=== PATIENT | male | born 1960 | race Caucasian/White ===

== ENCOUNTER 2019-02-15 09:44 | Day surgery (SDC) | payer OTHER ==
[2019-02-10 14:46] VITALS: BMI 34.0
[~2019-02-15 09:44] MED LIST: LACTATED RINGERS 1,000 ML IV SCH; LIDOCAINE 1% 20 ML VIAL (10MG/ML) FOR IV START INTRADERMA PRN; MOXIFLOXACIN HCL 0.5% DROPS 3 ML BTL OP ONE; TETRACAINE 0.5% OPHTH (PF) DROPS 4 ML BTL OP ONE; TIMOLOL 0.5% OPHTH DROPS 5 ML BTL OP ONE
[2019-02-15] MEDS: CYCLOPENTOLATE 1% OPHTH SOLN 2 ML BTL OP ONE ×3 (11:19→11:35)
[2019-02-15 11:21] VITALS: TEMP 97.9
[2019-02-15] MEDS: PHENYLEPHRINE 2.5% OPHTH DRP 2ML OP NR ×3 (11:22→11:40)
[2019-02-15] MEDS ORDERED: fentaNYL (PF) 50 MCG/ML 2 ML AMP ONE (12:14)
[2019-02-15] MEDS ORDERED: MIDAZOLAM 2 MG/2 ML VIAL ONE (12:14)
[2019-02-15] MEDS ORDERED: HYALURONATE SODIUM INTRAOCULAR 1 EACH SYRINGE (12MG/ML) INTRAOCULA ONE ×2 (12:31)
[2019-02-15] MEDS ORDERED: BALANCED SALT IRRIG SOLN COMB2 15 ML IRRIG.SOLN IRRIGATION ONE (12:31)
[2019-02-15] MEDS ORDERED: ACETYLCHOLINE CHLORIDE 10 MG/ML 2 ML KIT INTRAOCULA ONE (12:33)
[2019-02-15] MEDS ORDERED: LIDOCAINE 1% (PF) 10MG/ML VIAL SQ ONE (12:33)
[2019-02-15] MEDS ORDERED: EPINEPHrine (PF) 0.3 ML in BALANCED SALT IRRIG SOLN COMB2 500 ML IRRIGATION ONE (12:35)
[2019-02-15] MEDS ORDERED: TRYPAN BLUE 0.06% SYRINGE 0.5 ML SYRINGE INTRAOCULA ONE (12:58)
[2019-02-15] MEDS ORDERED: ATROPINE OPHTH SOLN 1% 2 ML BTL RIGHT EYE ONE (14:06)
--- NOTE | 2019-02-15 14:10 | P.OP ---
Date of Procedure: 02/15/19 Preoperative Diagnosis: NS & CS & endothelial failure Postoperative Diagnosis: same Procedure(s) Performed: TRIPLE PROCEDURE: PIOL & DMEK, OD Implants: [id number] 17.0 Anesthesia: MAC Surgeon: Duc Smith Estimated Blood Loss (ml): 0 Pathology: none sent Condition: stable Disposition: same day Indications for Procedure: blurry vision and endothelial failure Operative Findings: No complications
[2019-02-15 14:16] VITALS: RESP 16
[2019-02-15 15:16] VITALS: BP 136/97; PULSE 93
--- NOTE | 2019-02-15 17:43 | OP ---
OPERATIVE REPORT DATE OF SURGERY: 02/15/2019. PROCEDURE: This is a triple procedure. This includes phacoemulsification of cataract with intraocular lens implant as well as Descemet's membrane and endothelial keratoplasty of the right eye. 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 SURGEON: Dr. Duc Smith. ANESTHESIA: Topical. ESTIMATED BLOOD LOSS: None. SPECIMEN TAKEN: None. NARRATIVE: This patient has had a long-standing history of keratoconus of both eyes, the right one which required corneal transplantation in 2001. Subsequent to that transplant he did suffer a brief episode with endothelial rejection, which largely recovered. Now approximately 18 years later the cornea has begun to demonstrate serious decompensation due to the lack of viable endothelial cells. Today's surgery was intended to resolve problems of the developing cataract as well as stabilize the cornea without having to proceed with a full replacement corneal transplant by doing a Descemet's membrane and endothelial keratoplasty. After obtaining the appropriate consent, the patient was brought to the operating room. There he was placed on cardiac monitoring and prepped and draped in the usual sterile manner. He was approached from his right temporal side, and at the 11 o'clock position an MVR blade was used to create a paracentesis port. Through this opening 1% xylocaine MPF 50:50 mix with balanced salt solution was injected into the anterior chamber. This was followed by stabilization of the anterior chamber with Amvisc. At the 9 o'clock position a 2.5 mm keratome followed by a 2.8 mm keratome was used to create a self- sealing corneal flap incision. Through this opening a cystotome was used to begin a continuous tear capsulorrhexis, which was completed using the Utrata forceps. Hydrodissection and hydrodelineation of the lens was accomplished with balanced salt solution. Phacoemulsification of the lens utilizing phaco chop was accomplished in 0:00.95 seconds at 10% power. Additional xylocaine MPF was instilled into the anterior chamber. This was followed by removal of the remaining cortex under irrigation and aspiration along with careful polishing of the posterior capsule in the capsule vacuum mode. Additional Amvisc was then used to stabilize the capsular bag and an DEANDRE PCP 00 17.0 diopter posterior chamber intraocular lens was then inserted into the capsular bag without difficulty. The remaining viscoelastic was removed from in and around the intraocular lens. At this stage Miochol was instilled into the patient's eye to bring about pupillary miosis. His eye was temporarily covered with a small piece of Wechsel sponge and attention was then directed to the donor tissue. This tissue from [facility] was identified as [id number] and was transported as prestripped Descemet's tissue ready for implantation. The solution of transport was sent for bacterial study and the prestripped Descemet's tissue in a Briggs tube was placed on the end of a 3 mL syringe. In addition, while prepping the corneal tissue, SF6 was diluted to a 20% concentration with air and set aside for use later in the case. Attention was then turned back to the patient after sufficient time for miosis to occur, and trypan blue was instilled into the anterior chamber and left in place for approximately 3 minutes. The previous corneal transplant was confirmed with an 8 mm Yanira trephine. Using a Armando-Audi Hook, the endothelium just inside the corneal transplant was incised and was removed with the Descemet's membrane stripping tool. Once this was accomplished, all remaining viscoelastic was removed from the anterior chamber with strong flow. The anterior chamber was partially deflated so as to accept the donor tissue, which was brought to the field. The end of the Briggs tube was inserted into the temporal incision and the donor tissue was injected without difficulty. The temporal wound was tamponaded with 0.12 forceps while 10-0 nylon suture was used to close the temporal wound in an X fashion. Attention was then directed specifically at the donor tissue in the front chamber which appeared to be moderately tightly scrolled. Further deflation of the anterior chamber was required in order to be able to manipulate the tissue into the proper position. Once the tissue was properly centered and the identifying stromal matias was readily seen, a small amount of air was placed beneath the Descemet's tissue and buoyed the donor tissue against the host cornea. Once it appeared that the tissue truly was in good position and no edges were rolled, a small amount of SF6 was injected into the anterior chamber to bring the intraocular pressure to approximately 50 mmHg. This was left in the patient's eye for approximately 15 minutes while confirming with the patient that he continued to maintain some sort of vision from the eye. Near the end of the 15-minute time period, small amounts of balanced salt solution were injected into one of the 4 previously placed paracentesis sites on the eye. Confirmation of slightly higher than normal intraocular pressure was confirmed by palpation of the globe, and the amount of gas/air in the anterior chamber of the eye was approximately 50% of the volume of the anterior chamber. At this stage he received 2 drops of moxifloxacin as well as 2 drops of 1% atropine and 2 drops of 0.5% timolol. His eye was shielded and he was returned to Recovery, where he remained for an additional 45 minutes. At the end of that period of time his eye was examined under a slit lamp, which confirmed placement, appropriate amount of air in the anterior chamber, and no significant discomfort from the patient's eye. At this point the eye was re-shielded, instructions were given, and the patient was released to return home, spending two-thirds of his waking hours supine to allow the air bubble to perform its duty. There were no complications from this procedure. He tolerated the procedure well. MMODL / IJN: [id number] /
== END 2019-02-15 15:25 | disposition home or self-care (01) ==
LOC: OR 09:44
PROVIDERS: ATTEND Ophthalmology
DX: H25.13 Age-related nuclear cataract, bilateral (principal); H25.013 Cortical age-related cataract, bilateral; T86.841 Corneal transplant failure; H18.51 Endothelial corneal dystrophy; H18.603 Keratoconus, unspecified, bilateral; H52.13 Myopia, bilateral; H52.223 Regular astigmatism, bilateral; H52.4 Presbyopia; I10 Essential (primary) hypertension; E78.5 Hyperlipidemia, unspecified; K21.9 Gastro-esophageal reflux disease without esophagitis; F32.9 Major depressive disorder, single episode, unspecified; C76.51 Malignant neoplasm of right lower limb; Z79.899 Other long term (current) drug therapy; Z83.518 Family history of other specified eye disorder; Z83.3 Family history of diabetes mellitus; Z82.49 Family history of ischemic heart disease and other diseases of the circulatory system; Z97.3 Presence of spectacles and contact lenses
CPT/HCPCS: 87070; 87205; 87075; 66984; 65756; V2785; C1780; J2250; J0171; J3010; J2001

== ENCOUNTER 2019-05-17 08:24 | Day surgery (SDC) | payer OTHER ==
[2019-05-15 11:26] VITALS: BMI 34.7
[~2019-05-17 08:24] MED LIST changes: -LACTATED RINGERS 1,000 ML IV SCH; +MOXIFLOXACIN HCL 0.5% DROPS 3 ML BTL OP NR; -MOXIFLOXACIN HCL 0.5% DROPS 3 ML BTL OP ONE; +TETRACAINE 0.5% OPHTH (PF) DROPS 4 ML BTL OP NR; -TETRACAINE 0.5% OPHTH (PF) DROPS 4 ML BTL OP ONE; -TIMOLOL 0.5% OPHTH DROPS 5 ML BTL OP ONE
[2019-05-17] MEDS: PILOCARPINE 2% OPHTH DROPS 15 ML BTL OP NR ×4 (09:31→10:42)
[2019-05-17] MEDS: SODIUM CHLORIDE 5% OPHTH DROPS 15 ML BTL RIGHT EYE PRN ×6 (09:35→10:10)
[2019-05-17] MEDS: LACTATED RINGERS 1,000 ML IV SCH ×2 (09:57→10:12)
[2019-05-17 10:03] VITALS: RESP 18; TEMP 97.6
[2019-05-17] MEDS ORDERED: fentaNYL (PF) 50 MCG/ML 2 ML AMP ONE (10:17)
[2019-05-17] MEDS ORDERED: MIDAZOLAM 2 MG/2 ML VIAL ONE (10:17)
[2019-05-17] MEDS ORDERED: EPINEPHrine (PF) 0.3 ML in BALANCED SALT IRRIG SOLN COMB2 500 ML IRRIGATION ONE (10:38)
[2019-05-17] MEDS ORDERED: BALANCED SALT IRRIG SOLN COMB2 15 ML IRRIG.SOLN IRRIGATION ONE (10:39)
[2019-05-17] MEDS ORDERED: HYALURONATE SODIUM INTRAOCULAR 1 EACH SYRINGE (12MG/ML) INTRAOCULA ONE (10:40)
[2019-05-17] MEDS ORDERED: LIDOCAINE (PF) 10 MG/ML 5ML AMP MISCELLANE ONE (10:40)
--- NOTE | 2019-05-17 11:31 | P.OP ---
Date of Procedure: 05/17/19 Preoperative Diagnosis: endothelial failure Postoperative Diagnosis: same Procedure(s) Performed: DMEK Implants: none Anesthesia: MAC Pathology: none sent Condition: stable Disposition: same day Indications for Procedure: failed endothelium. Operative Findings: no complications
[2019-05-17 12:27] VITALS: BP 127/91; PULSE 90
[2019-05-17] MEDS ORDERED: ACETAMINOPHEN TAB 325 MG TAB PO ONE (12:42)
--- NOTE | 2019-05-17 21:04 | OP ---
OPERATIVE REPORT DATE OF SURGERY: May 17, 2019. PROCEDURE PERFORMED: Descemet's membrane and endothelial keratoplasty of the right eye. PREOPERATIVE DIAGNOSIS: Primary graft failure of the right eye. POSTOPERATIVE DIAGNOSIS: Primary graft failure of the right eye. SURGEONS: Dr. Duc Smith. ANESTHESIA: Topical. ESTIMATED BLOOD LOSS: None. SPECIMEN: Taken none. NARRATIVE: Previous history: This is a gentleman with keratoconus, who underwent penetrating keratoplasty of the right eye in 2000. Subsequent to that, he ended up with some rejection of the cornea late [id number] with apparently eventual failure by the time he presented to me approximately 17 years later in 2019. He underwent a cataract removal, lens implant with a Descemet's membrane endothelial keratoplasty of the right eye at that time, and the graft did not take to the eye after the implantation. Therefore, this was a primary graft failure as it happened within the 1st couple of weeks. Regardless, he now presents for repair for replacement of the failed Descemet's membrane graft which is the procedure for which he is here today. After obtaining the appropriate consent, the patient was brought to the operating room. There, he was placed on cardiac monitoring prepped and draped in the usual sterile manner. He was approached from his right temporal side. Four paracenteses were performed in the diagonal quadrants using an MVR blade as well as a 2.8 mm temporal incision with a keratome. Lidocaine MPF 50/50 mix with balanced salt solution was injected into the anterior chamber. This was followed by removal of the failed Descemet's membrane using both Roberts Sinskey hook as well as a membrane stripper. Attention was then directed to the new donor tissue, which was identified as [id number]. This was brought to the field. Cultures were taken of the transport solution and sent to the laboratory for identification of any potential pathogens. If the tissue was then brought to the patient's eye, and after removing at least 50% of the aqueous from the anterior chamber, the Briggs tube was inserted into the temporal incision and the tissue was delivered into the anterior chamber of the eye without difficulty. The temporal incision was tamponade as the Briggs tube was removed and a single 10-0 nylon suture was used to close the temporal incision in an X fashion. Various manipulation techniques were used to lay the new donor tissue flat with the correct orientation. Once the tissue was in good position, a small air bubble was placed underneath the donor to lightly tamponade it to the patient's cornea. Once the cornea, as the cornea remained in satisfactory position, a 20% solution of sulfur Hexafluoride SF6 was injected into the patient's eye to tamponade the entire tissue against the patient's cornea. Approximately 20 minutes had passed prior to removing some of the SF6 gas and leaving the eye approximately 50% full of gas at the end of this portion of the case. Two drops of timolol as well as 2 drops of moxifloxacin were placed on the patient's eye and he was returned to the recovery area where he was allowed to remain flat and looking at the ceiling for an additional hour. An examination of the slit-lamp in the recovery area identified the anterior chamber as being 90% full of gas and moderate discomfort as reported by the patient. A drop of tetracaine was placed on the patient's eye and while the patient looked downward a Bechert lens manipulating instrument was used to partially open the superior nasal paracentesis. A small amount of gas was released with relief in the patient from the deep-seated discomfort within the eye from the increased eye pressure. Re-examination of the slit-lamp following the procedure, noted that the gas was approximately 50% of the volume of the anterior chamber. At this point, it was deemed permissible to allow the patient to return home and he was discharged from the postop recovery area in good condition. MMRUBI / ANDREW: [id number] /
== END 2019-05-17 13:09 | disposition home or self-care (01) ==
LOC: OR 08:24
PROVIDERS: ATTEND Ophthalmology
DX: T86.841 Corneal transplant failure (principal); H18.51 Endothelial corneal dystrophy; H18.11 Bullous keratopathy, right eye; H18.603 Keratoconus, unspecified, bilateral; H25.12 Age-related nuclear cataract, left eye; H25.012 Cortical age-related cataract, left eye; Z94.7 Corneal transplant status; I10 Essential (primary) hypertension; E78.5 Hyperlipidemia, unspecified; K21.9 Gastro-esophageal reflux disease without esophagitis; C76.51 Malignant neoplasm of right lower limb; F32.9 Major depressive disorder, single episode, unspecified; E78.00 Pure hypercholesterolemia, unspecified; M19.90 Unspecified osteoarthritis, unspecified site; Z87.891 Personal history of nicotine dependence; Z79.899 Other long term (current) drug therapy; Z83.518 Family history of other specified eye disorder; Z83.3 Family history of diabetes mellitus; Z82.49 Family history of ischemic heart disease and other diseases of the circulatory system; Z80.9 Family history of malignant neoplasm, unspecified; Z87.11 Personal history of peptic ulcer disease
CPT/HCPCS: 87070; 87205; 87075; 65756; V2785; J2250; J0171; J2001; J3010

== ENCOUNTER 2019-10-12 09:31 | Day surgery (SDC) | payer OTHER ==
[2019-10-11 10:30] VITALS: BMI 34.7
[~2019-10-12 09:31] MED LIST changes: +LACTATED RINGERS 1,000 ML IV SCH; +LIDOCAINE 1% (10MG/ML) FOR IV START INTRADERMA PRN; -LIDOCAINE 1% 20 ML VIAL (10MG/ML) FOR IV START INTRADERMA PRN; -MOXIFLOXACIN HCL 0.5% DROPS 3 ML BTL OP NR; -TETRACAINE 0.5% OPHTH (PF) DROPS 4 ML BTL OP NR
[2019-10-12 09:46] VITALS: TEMP 97.8
[2019-10-12] MEDS ORDERED: PROPOFOL 10 MG/ML 20 ML VIAL IV ONE (10:00)
--- NOTE | 2019-10-12 10:28 | P.PCN ---
Date of Procedure: 10/12/19 Description of Procedure: BRIEF HISTORY: Patient is a 59-year-old male presenting for outpatient colonoscopy for screening for malignant neoplasm of the colon. He does report prior colonoscopy approximately 12 years ago with polyps removed at that time. Denies any change in bowel habits, blood per rectum or abdominal pain. No family history of colon cancer. PROCEDURE PERFORMED: Colonoscopy with polypectomy. PREOPERATIVE DIAGNOSIS: Screening for malignant neoplasm in the colon, last colonoscopy 12 years ago. ESTIMATED BLOOD LOSS: Minimal. IV sedation per Anesthesia. PROCEDURE: After informed consent was obtained, the patient, was brought into the endoscopy unit. IV sedation was administered by Anesthesia under continuous monitoring. Digital rectal examination was normal. Initially the Olympus CF-190 flexible video colonoscope was then inserted in the rectum, gradually advanced into the cecum without any difficulty. Careful examination was performed as the scope was gradually being withdrawn. Ileocecal valve and the appendiceal orifice were visualized and appeared normal. Prep was excellent. Mucosa of the cecum, ascending colon, transverse colon, descending colon, sigmoid colon, and rectum appeared normal. 2 diminutive 1 mm polyps removed with cold forcep polypectomy from the cecum and the ascending colon. One 2 mm descending colon polyp removed with cold forcep polypectomy. Retroflexion was performed in the rectum and no lesions were seen, Low-grade internal hemorrhoids. The patient tolerated the procedure well. IMPRESSION: 3 diminutive colon polyps removed from the cecum, ascending colon and descending colon with cold forcep polypectomy. Otherwise normal-appearing colon from rectum to cecum. Low-grade internal hemorrhoids. RECOMMENDATIONS: Findings of this examination were discussed with the patient. Okay to resume diet. Okay to resume medications. Await pathology from polypectomy. Would recommend repeat colonoscopy in 5 years pending pathology from polypectomies.
[2019-10-12 10:51] VITALS: BP 110/73; PULSE 78; RESP 18
== END 2019-10-12 11:09 | disposition home or self-care (01) ==
LOC: ORWHC2ENDO 09:31
PROVIDERS: ATTEND Internal Medicine
DX: Z12.11 Encounter for screening for malignant neoplasm of colon (principal); D12.2 Benign neoplasm of ascending colon; D12.0 Benign neoplasm of cecum; K63.5 Polyp of colon; K64.8 Other hemorrhoids; I10 Essential (primary) hypertension; E78.5 Hyperlipidemia, unspecified; K21.9 Gastro-esophageal reflux disease without esophagitis; Z86.010 Personal history of colon polyps; Z87.891 Personal history of nicotine dependence; Z79.1 Long term (current) use of non-steroidal anti-inflammatories (NSAID); Z79.899 Other long term (current) drug therapy; Z94.7 Corneal transplant status; Z91.89 Other specified personal risk factors, not elsewhere classified; Z98.890 Other specified postprocedural states
CPT/HCPCS: 88305; 45380; J2704

== ENCOUNTER 2020-02-16 10:10 | Emergency (ER) | payer OTHER ==
[2020-02-16 10:15] VITALS: TEMP 98.6
--- NOTE | 2020-02-16 10:30 | ED ---
General Adult HPI - General Chief complaint: Syncope Stated complaint: Syncope Time Seen by Provider: 02/16/20 10:10 Source: patient, RN notes reviewed, old records reviewed Mode of arrival: ambulatory Limitations: no limitations - History of Present Illness Initial comments: This a 60-year-old male who presents to the emergency department complaining of having a syncopal episode. Patient states she's had multiple of these over the last 10 years. Patient states she's not sure why they occur. Patient states he was at home had not eaten yet today and he was walking around when all of a sudden he felt lightheaded and he sat down and then he passed out. According to EMS when they got there is systolic blood pressure was in the 80s and they gave him a liter and half of fluid and his blood pressures come up. Currently patient has no symptoms. Patient states earlier all he felt was lightheaded he denied having headache he denied any numbness or focal weakness. Patient denies any chest pain difficulty breathing or shortness of breath. Patient denied any recent abdominal pain nausea vomiting or diarrhea. Patient denies any recent fever chills. Patient has absolutely no complaints at this time. - Related Data Home Medications Medication Instructions Recorded Confirmed Ibuprofen 800 mg PO BID 02/10/19 10/12/19 Omeprazole 20 mg PO DAILY 02/10/19 10/12/19 Pravastatin Sodium [Pravachol] 80 mg PO HS 02/10/19 10/12/19 amLODIPine [Norvasc] 2.5 mg PO DAILY 02/10/19 10/12/19 lisinopriL 40 mg PO DAILY 02/10/19 10/12/19 Allergies Allergy/AdvReac Type Severity Reaction Status Date / Time No Known Allergies Allergy Verified 02/16/20 10:15 Review of Systems ROS Statement: Those systems with pertinent positive or pertinent negative responses have been documented in the HPI. ROS Other: All systems not noted in ROS Statement are negative. Past Medical History Past Medical History: Cancer, Eye Disorder, GERD/Reflux, Hyperlipidemia, Hypertension Additional Past Medical History / Comment(s): BILAT CATARACTS. FIBROSARCOMA-RT THIGH History of Any Multi-Drug Resistant Organisms: None Reported Additional Past Surgical History / Comment(s): RT CORNEA TRANSPLANT 1999, 01/2019. REMOVAL FIBROSARCOMA RT THIGH 2003. COLONOSCOPY Past Anesthesia/Blood Transfusion Reactions: No Reported Reaction Additional Past Anesthesia/Blood Transfusion Reaction / Comment(s): SLOW TO WAKE UP AFTER CANCER SURGERY Past Psychological History: No Psychological Hx Reported Smoking Status: Former smoker Past Alcohol Use History: None Reported Past Drug Use History: None Reported - Past Family History Father Family Medical History: Cancer General Exam - General Exam Comments Initial Comments: GENERAL: Patient is well-developed and well-nourished. Patient is nontoxic and well- hydrated and is in no acute distress. ENT: Neck is soft and supple. No significant lymphadenopathy is noted. Oropharynx is clear. Moist mucous membranes. Neck has full range of motion without eliciting any pain. EYES: The sclera were anicteric and conjunctiva were pink and moist. Extraocular movements were intact and pupils were equal round and reactive to light. Eyelids were unremarkable. PULMONARY: Unlabored respirations. Good breath sounds bilaterally. No audible rales rhonchi or wheezing was noted. CARDIOVASCULAR: There is a regular rate and rhythm without any murmurs gallops or rubs. ABDOMEN: Soft and nontender with normal bowel sounds. SKIN: Skin is clear with no lesions or rashes and otherwise unremarkable. NEUROLOGIC: Patient is alert and oriented x3. Cranial nerves II through XII are grossly intact. Motor and sensory are also intact. Normal speech, volume and content. Symmetrical smile. MUSCULOSKELETAL: Normal extremities with adequate strength and full range of motion. No lower extremity swelling or edema. No calf tenderness. LYMPHATICS: No significant lymphadenopathy is noted PSYCHIATRIC: Normal psychiatric evaluation. Limitations: no limitations Course Vital Signs 02/16/20 02/16/20 02/16/20 10:11 10:30 10:34 Temperature 98.6 F Pulse Rate 95 99 Pulse Rate [ 102 H Sitting] Pulse Rate [ 108 H Standing] Pulse Rate [ 95 Supine] Respiratory 18 25 H Rate Blood Pressure 122/79 118/86 Blood Pressure 124/86 [Sitting] Blood Pressure 118/86 [Standing] Blood Pressure 126/78 [Supine] O2 Sat by Pulse 97 83 L Oximetry 02/16/20 02/16/20 11:00 11:30 Temperature Pulse Rate 96 98 Pulse Rate [ Sitting] Pulse Rate [ Standing] Pulse Rate [ Supine] Respiratory 18 19 Rate Blood Pressure 114/87 101/78 Blood Pressure [Sitting] Blood Pressure [Standing] Blood Pressure [Supine] O2 Sat by Pulse 93 L 94 L Oximetry Medical Decision Making - Medical Decision Making EKG shows normal sinus rhythm at 94 bpm MA interval 272 QRS is 88 QT interval 370 QTC is 462. Patient's EKG shows Q waves in leads 3 and aVF there is no ST segment elevation or depression. Patient has been a symptomatically felt his ED stay. Patient was able to get up and ambulate without any symptoms. Patient initially responded to 1.5 L of fluid by EMS and since that time he has had no episodes of lightheadedness or low blood pressure. - Lab Data Result diagrams: 02/16/20 10:02/16/20 10: Lab Results 02/16/20 02/16/20 02/16/20 Range/Units 10: 10: 10: WBC 4.7 (3.8-10.6) k/uL RBC 4.98 (4.30-5.90) m/uL Hgb 16.1 (13.0-17.5) gm/dL Hct 48.2 (39.0-53.0) % MCV 96.8 (80.0-100.0) fL MCH 32.3 (25.0-35.0) pg MCHC 33.3 (31.0-37.0) g/dL RDW 12.6 (11.5-15.5) % Plt Count 195 (150-450) k/uL Neutrophils % 60 % Lymphocytes % 28 % Monocytes % 7 % Eosinophils % 1 % Basophils % 1 % Neutrophils # 2.8 (1.3-7.7) k/uL Lymphocytes # 1.3 (1.0-4.8) k/uL Monocytes # 0.3 (0-1.0) k/uL Eosinophils # 0.1 (0-0.7) k/uL Basophils # 0.1 (0-0.2) k/uL PT 10.7 (9.0-12.0) sec INR 1.0 (<1.2) APTT 22.2 (22.0-30.0) sec Sodium 138 (137-145) mmol/L Potassium 3.6 (3.5-5.1) mmol/L Chloride 108 H (98-107) mmol/L Carbon Dioxide 22 (22-30) mmol/L Anion Gap 8 mmol/L BUN 22 H (9-20) mg/dL Creatinine 1.17 (0.66-1.25) mg/dL Est GFR (CKD-EPI)AfAm 78 (>60 ml/min/1.73 sqM) Est GFR (CKD-EPI)NonAf 67 (>60 ml/min/1.73 sqM) Glucose 129 H (74-99) mg/dL Calcium 8.3 L (8.4-10.2) mg/dL Magnesium 1.9 (1.6-2.3) mg/dL Total Bilirubin 1.9 H (0.2-1.3) mg/dL AST 54 (17-59) U/L ALT 65 H (4-49) U/L Alkaline Phosphatase 72 (38-126) U/L Troponin I (0.000-0.034) ng/mL Total Protein 7.2 (6.3-8.2) g/dL Albumin 4.0 (3.5-5.0) g/dL 02/16/20 Range/Units 10:29 WBC (3.8-10.6) k/uL RBC (4.30-5.90) m/uL Hgb (13.0-17.5) gm/dL Hct (39.0-53.0) % MCV (80.0-100.0) fL MCH (25.0-35.0) pg MCHC (31.0-37.0) g/dL RDW (11.5-15.5) % Plt Count (150-450) k/uL Neutrophils % % Lymphocytes % % Monocytes % % Eosinophils % % Basophils % % Neutrophils # (1.3-7.7) k/uL Lymphocytes # (1.0-4.8) k/uL Monocytes # (0-1.0) k/uL Eosinophils # (0-0.7) k/uL Basophils # (0-0.2) k/uL PT (9.0-12.0) sec INR (<1.2) APTT (22.0-30.0) sec Sodium (137-145) mmol/L Potassium (3.5-5.1) mmol/L Chloride (98-107) mmol/L Carbon Dioxide (22-30) mmol/L Anion Gap mmol/L BUN (9-20) mg/dL Creatinine (0.66-1.25) mg/dL Est GFR (CKD-EPI)AfAm (>60 ml/min/1.73 sqM) Est GFR (CKD-EPI)NonAf (>60 ml/min/1.73 sqM) Glucose (74-99) mg/dL Calcium (8.4-10.2) mg/dL Magnesium (1.6-2.3) mg/dL Total Bilirubin (0.2-1.3) mg/dL AST (17-59) U/L ALT (4-49) U/L Alkaline Phosphatase (38-126) U/L Troponin I <0.012 (0.000-0.034) ng/mL Total Protein (6.3-8.2) g/dL Albumin (3.5-5.0) g/dL Disposition Clinical Impression: Syncope and collapse, Dehydration Disposition: HOME SELF-CARE Condition: Good Instructions (If sedation given, give patient instructions): Syncope (ED), Dehydration (ED) Is patient prescribed a controlled substance at d/c from ED?: No Referrals: [facility],Clinic [Primary Care Provider] - 1-2 days Time of Disposition: 11:50
[2020-02-16 10:45] LABS: Basophils # (A) 0.1 k/uL (0-0.2); Basophils % (A) 1 %; Eosinophils # (A) 0.1 k/uL (0-0.7); Eosinophils % (A) 1 %; HCT 48.2 % (39.0-53.0); HGB 16.1 gm/dL (13.0-17.5); Lymphocytes # (A) 1.3 k/uL (1.0-4.8); Lymphocytes % (A) 28 %; MCH 32.3 pg (25.0-35.0); MCHC 33.3 g/dL (31.0-37.0); MCV 96.8 fL (80.0-100.0); Mean Platelet Volume 7.9; Monocytes # (A) 0.3 k/uL (0-1.0); Monocytes % (A) 7 %; Neutrophils # (A) 2.8 k/uL (1.3-7.7); Neutrophils % (A) 60 %; Platelet Count 195 k/uL (150-450); RBC 4.98 m/uL (4.30-5.90); RDW 12.6 % (11.5-15.5); WBC 4.7 k/uL (3.8-10.6)
--- NOTE | 2020-02-16 10:46 | XR ---
EXAMINATION TYPE: XR chest 2V DATE OF EXAM: 02/16/2020 CLINICAL HISTORY: Chest Pain. TECHNIQUE: Frontal and lateral view of the chest. COMPARISON: None FINDINGS: The cardiomediastinal silhouette is within normal limits for size. Pulmonary vasculature i s normal. There is no focal air space opacity, pleural effusion, or pneumothorax seen. Degenerative c hanges of the spine. IMPRESSION: No acute cardiopulmonary process.
[2020-02-16 10:58] LABS: Calcium 8.3 mg/dL (8.4-10.2); Magnesium 1.9 mg/dL (1.6-2.3); Potassium 3.6 mmol/L (3.5-5.1); Total Bilirubin 1.9 mg/dL (0.2-1.3); Total Protein 7.2 g/dL (6.3-8.2)
[2020-02-16 11:23] LABS: Partial Thromboplastin Time 22.2 sec (22.0-30.0); Prothrombin Time 10.7 sec (9.0-12.0)
[2020-02-16 11:49] VITALS: BP 101/78
[2020-02-16 12:05] VITALS: PULSE 96; RESP 18
== END 2020-02-16 12:11 | disposition home or self-care (01) ==
LOC: EC 10:10
DX: E86.0 Dehydration (principal); K21.9 Gastro-esophageal reflux disease without esophagitis; I10 Essential (primary) hypertension; E78.5 Hyperlipidemia, unspecified; Z79.899 Other long term (current) drug therapy; Z87.891 Personal history of nicotine dependence; Z98.42 Cataract extraction status, left eye; Z98.41 Cataract extraction status, right eye
CPT/HCPCS: 36415; 71046; 80053; 83735; 84484; 85025; 85610; 85730; 93005; 99284

== ENCOUNTER 2021-09-17 08:39 | Day surgery (SDC) | payer OTHER ==
[2021-09-16 11:26] VITALS: BMI 35.6
[~2021-09-17 08:39] MED LIST changes: +MOXIFLOXACIN HCL 0.5% DROPS 3 ML BTL OP PRN; +TETRACAINE 0.5% OPHTH (PF) DROPS 4 ML BTL OP PRN; +TIMOLOL 0.5% OPHTH DROPS 5 ML BTL OP PRN
[2021-09-17] MEDS: PHENYLEPHRINE 2.5% OPHTH DRP 2ML OP PRN ×3 (09:10→09:29)
[2021-09-17] MEDS: CYCLOPENTOLATE 1% OPHTH SOLN 2 ML BTL OP PRN ×3 (09:13→09:34)
[2021-09-17 09:14] VITALS: TEMP 98.1
[2021-09-17] MEDS ORDERED: fentaNYL (PF) 50 MCG/ML 2 ML AMP ONE (09:52)
[2021-09-17] MEDS ORDERED: MIDAZOLAM 2 MG/2 ML VIAL ONE (09:52)
[2021-09-17] MEDS ORDERED: LIDOCAINE 1% (PF) 10MG/ML VIAL SQ ONE (10:05)
[2021-09-17] MEDS ORDERED: BALANCED SALT IRRIG SOLN COMB2 15 ML IRRIG.SOLN INTRAOCULA ONE (10:05)
[2021-09-17] MEDS ORDERED: DUOVISC KIT (GREEN BOX) INTRAOCULA ONE (10:05)
[2021-09-17] MEDS ORDERED: EPINEPHrine (PF) 0.3 ML in BALANCED SALT IRRIG SOLN COMB2 500 ML IRRIGATION ONE (10:06)
--- NOTE | 2021-09-17 10:23 | P.OP ---
Date of Procedure: 09/17/21 Preoperative Diagnosis: NS Postoperative Diagnosis: same Procedure(s) Performed: PIOL< OS Implants: [id number] 18.00 Anesthesia: MAC Surgeon: Duc Smith Pathology: none sent Condition: stable Disposition: same day Indications for Procedure: blurry vision Operative Findings: no complications
[2021-09-17 10:32] VITALS: RESP 14
[2021-09-17 11:07] VITALS: BP 112/76; PULSE 75
--- NOTE | 2021-09-17 14:23 | OP ---
OPERATIVE REPORT DATE OF SURGERY: September 17, 2021. PROCEDURE: Phacoemulsification of cataract and intraocular lens implant of the left eye. SURGEON: Dr. Duc Smith. PREOPERATIVE DIAGNOSES: Nuclear sclerosis cortical sclerosis, posterior subcapsular cataract. POSTOPERATIVE DIAGNOSES: Nuclear sclerosis cortical sclerosis, posterior subcapsular cataract. OPERATION: Clear cornea phacoemulsification of cataract left/OS eye. ESTIMATED BLOOD LOSS: Zero. SPECIMEN TAKEN: None. NARRATIVE: After obtaining the appropriate consent, the patient was brought to the Operating Room where the patient was placed under cardiac monitoring and prepped and draped in the usual sterile manner. At the 5 o'clock position a 15 degree super sharp blade was used to create a paracentesis followed by instillation of 1% Xylocaine MPF 50:50 mix with BSS into the anterior chamber. This was followed by Duovisc to stabilize the anterior chamber. At the 3 o'clock position a self-sealing corneal flap incision was created using 2.8 mm yamel keratome. A cystotome was used to initiate a continuous tear capsulorrhexis which was completed with the Utrata forceps. A Binkhorst cannula was used to hydrodissect the lens nucleus followed by hydrodelineation. Phacoemulsification of the lens was performed utilizing phaco-chop in 9.67 seconds at 16% power. The remaining cortical material was removed using the irrigation aspiration mode followed by additional 1% Xylocaine MPF into the anterior chamber followed by viscoelastic to stabilize the capsular bag. A [employer]ch [employer] Lomb MX 60E 18.0 diopter posterior chamber lens was placed into the capsular bag without difficulty. The remaining viscoelastic material was removed from the anterior chamber with the irrigation/aspiration. Balanced salt solution was used to normalize the intraocular pressure. The incision was checked for watertight integrity. The patient then received two drops of 0.5% timolol followed by two drops Vigamox, was lightly patched and shielded in the usual manner. There were no complications from the procedure. The patient tolerated the procedure well and was returned to recovery in good condition. MMODL / IJN: [id number] /
== END 2021-09-17 10:50 | disposition home or self-care (01) ==
LOC: OR 08:39
PROVIDERS: ATTEND Ophthalmology
DX: H25.12 Age-related nuclear cataract, left eye (principal); H25.012 Cortical age-related cataract, left eye; H25.042 Posterior subcapsular polar age-related cataract, left eye; H18.513 Endothelial corneal dystrophy, bilateral; H43.393 Other vitreous opacities, bilateral; H18.603 Keratoconus, unspecified, bilateral; H52.13 Myopia, bilateral; H52.223 Regular astigmatism, bilateral; H52.4 Presbyopia; H40.61 Glaucoma secondary to drugs, right eye; I10 Essential (primary) hypertension; Z94.7 Corneal transplant status; Z98.41 Cataract extraction status, right eye; Z96.1 Presence of intraocular lens; Z98.890 Other specified postprocedural states; Z85.9 Personal history of malignant neoplasm, unspecified; Z83.3 Family history of diabetes mellitus; Z82.49 Family history of ischemic heart disease and other diseases of the circulatory system; Z83.518 Family history of other specified eye disorder; Z79.899 Other long term (current) drug therapy
CPT/HCPCS: 66984; C1780; J2250; J0171; J3010; J2001

== ENCOUNTER → 2022-08-20 | Outpatient (CLI) | payer OTHER ==
--- NOTE | 2022-08-20 14:01 | US ---
EXAMINATION TYPE: US carotid duplex BILAT DATE OF EXAM: 08/20/2022 COMPARISON: NONE CLINICAL INDICATION: Male, 62 years old with history of I65.29 OCCLUSION AND STENOSIS; TECHNIQUE: Carotid duplex ultrasound examination. Indirect Doppler criteria was utilized. FINDINGS: EXAM MEASUREMENTS: RIGHT: Peak Systolic Velocity (PSV) cm/sec ----- Right CCA: 73.5 ----- Right ICA: 96.8 ----- Right ECA: 141.1 ICA/CCA ratio: 1.3 RIGHT: End Diastole cm/sec ----- Right CCA: 24.1 ----- Right ICA: 27 ----- Right ECA: 20.9 LEFT: Peak Systolic Velocity (PSV) cm/sec ----- Left CCA: 95 ----- Left ICA: 98.9 ----- Left ECA: 112.7 ICA/CCA ratio: 1.0 LEFT: End Diastole cm/sec ----- Left CCA: 29.9 ----- Left ICA: 22.1 ----- Left ECA: 18.1 VERTEBRALS (direction of flow): Right Vertebral: Antegrade Left Vertebral: Antegrade Rhythm: Normal [employer]IEF [employer]ER TOWER NOTES: No significant stenosis seen IMPRESSION: No hemodynamically significant internal carotid artery stenosis on either side. Criteria for Assigning % of Stenosis / Diameter reduction (Estimation based on the indirect measurements of the internal carotid artery velocities (ICA PSV). 1. Normal (no stenosis)=ICA PSV < 125 cm/s: ratio < 2.0: ICA EDV<40 cm/s. 2. Less than 50% stenosis=ICA PSV < 125 cm/s: ratio < 2.0: ICA EDV<40 cm/s. 3. 50 to 69% stenosis=ICA PSV of 125 to 230 cm/s: ration 2.0 ? 4.0: ICA EDV 40-100 cm/s. 4. Greater than 70% stenosis to near occlusion= ICA PSV > 230 cm/s: ratio > 4.0: ICA EDV > 100 cm/s. 5. Near occlusion= ICA PSV velocities may be low or undetectable: variable ratio and ICA EDV. 6. Total occlusion=unable to detect flow.
== END | disposition home or self-care (01) ==
LOC: RADUSWWP 10:44
DX: I65.29 Occlusion and stenosis of unspecified carotid artery (principal)
CPT/HCPCS: 93880